=== PATIENT | male | born 1980 | race Hispanic/Latino ===

== ENCOUNTER 2021-02-22 02:37 | Inpatient (IN) | payer MEDICARE ==
[~2021-02-22] VITALS: Ht 167.6 cm; Wt 78.9 kg
[2021-02-22 04:00] VITALS: BP 159/91
[2021-02-22] MEDS ORDERED: NITROGLYCERIN 0.4 MG SL TAB SL PRN (04:00)
[2021-02-22] MEDS ORDERED: 0.9%NACL 1000ML 1,000 ML IV SCH (04:00)
[2021-02-22] MEDS ORDERED: ONDANSETRON 4MG INJ IV PRN (04:00)
[2021-02-22] MEDS ORDERED: 0.9%NACL 1000ML 1,000 ML IV ONE (04:41)
[2021-02-22 05:12] LABS: MEAN CORPUSCULAR HEMOGLOBIN 28.5 pg (27.0-33.0); MEAN CORPUSCULAR HGB CONC 33.3 g/dL (32.0-36.0); MEAN CORPUSCULAR VOLUME 85.5 fL (79-99); PLATELET COUNT (AUTO) 221 K/uL (130-400); RED BLOOD CELL COUNT(AUTO) 4.56 MIL/uL (4.50-6.20); RED CELL DISTRIBUTION WIDTH 12.9 % (11.0-15.5); WHITE BLOOD COUNT (AUTO) 6.9 K/uL (4.8-10.8)
[2021-02-22] MEDS ORDERED: GLUCAGON 1MG KIT 1 MG ML IM PRN (05:30)
[2021-02-22] MEDS ORDERED: DEXTROSE 50%-WATER 50 ML DISP.SYRIN IV PRN (05:30)
[2021-02-22 05:36] LABS: INR 1.17 (0.85-1.15); PROTHROMBIN TIME 12.6 SEC (9.6-11.6)
[2021-02-22 05:38] LABS: PARTIAL THROMBOPLASTIN TIME 32.2 SEC (26.3-35.5)
[2021-02-22 05:52] LABS: HEMOGLOBIN A1C 5.6 % (4.0-6.0)
[2021-02-22 05:55] LABS: BILIRUBIN,TOTAL 0.5 mg/dL (0.2-1.0); CREATININE 0.9 mg/dL (0.5-1.5); MAGNESIUM 2.1 mg/dL (1.80-2.40); POTASSIUM 3.8 mmol/L (3.5-5.1)
[2021-02-22 05:56] LABS: ALBUMIN 3.6 g/dL (3.5-5.0); TOTAL PROTEIN, SERUM 6.4 g/dL (6.0-8.3)
[2021-02-22] MEDS ORDERED: ZOSYN 3.375GM+NS 50ML 50 ML ONE (05:58)
[2021-02-22] MEDS ORDERED: KETOROLAC 15MG/ML VIAL (15MG/ML) ONE (05:58)
[2021-02-22 06:06] LABS: BASOPHILS % (MANUAL) 1 % (0-2); EOSINOPHILS % (MANUAL) 3 % (1-6); LYMPHOCYTES % (MANUAL) 64 % (22-44); MAN.DIFF COMMENT-IMPRESSION MANUAL DIFFERENTIAL; MONOCYTES % (MANUAL) 4 % (2-9); SEGMENTED NEUTROPHILS % 28 % (40-70)
[2021-02-22 06:07] LABS: PLATELET MORPHOLOGY COMMENT ADEQUATE
[2021-02-22] MEDS: INSULIN HUMULIN R 100 UNIT/ML 3ML SQ SCH ×4 (07:30→20:50)
[2021-02-22 08:01] VITALS: BP 157/98
[2021-02-22] MEDS: FAMOTIDINE 20MG VIAL IV SCH ×2 (09:39→20:49)
[2021-02-22] MEDS: KETOROLAC 15MG/ML VIAL (15MG/ML) IM PRN ×2 (09:50→18:31)
[2021-02-22] MEDS: DEXTROSE 5%-LACTATED RINGERS 1,000 ML IV SCH ×2 (11:29→23:28)
[2021-02-22 11:39] VITALS: BP 175/87
[2021-02-22] MEDS ORDERED: ZOSYN 3.375GM+NS 50ML 3.38 GM in 0.9%NACL 50ML 50 ML IV SCH (13:00)
[2021-02-22] MEDS: ZOSYN 3.375GM +NS 50ML IV SCH ×2 (13:28→20:49)
[2021-02-22] MEDS ORDERED: AMLODIPINE 5 MG TAB PO ONE (14:00)
[2021-02-22 15:49] VITALS: BP 136/83
[2021-02-22 19:50] VITALS: BP 157/77
[2021-02-22 23:43] VITALS: BP 130/73
[2021-02-23 03:48] VITALS: BP 128/77
[2021-02-23] MEDS: ZOSYN 3.375GM +NS 50ML IV SCH (04:21)
[2021-02-23] MEDS: INSULIN HUMULIN R 100 UNIT/ML 3ML SQ SCH ×2 (05:49→11:30)
[2021-02-23 06:19] LABS: BASOPHILS % (AUTO) 1.3 % (0.0-5.0); EOSINOPHILS % (AUTO) 4.9 % (0.0-8.0); HEMATOCRIT 38.7 % (42-54); LYMPHOCYTES % (AUTO) 42.8 % (21.0-51.0); MEAN CORPUSCULAR HEMOGLOBIN 28.2 pg (27.0-33.0); MEAN CORPUSCULAR HGB CONC 32.8 g/dL (32.0-36.0); MONOCYTES % (AUTO) 4.6 % (3.0-13.0); NEUTROPHILS % (AUTO) 46.2 % (40.0-77.0); PLATELET COUNT (AUTO) 210 K/uL (130-400); WHITE BLOOD COUNT (AUTO) 5.5 K/uL (4.8-10.8)
[2021-02-23 06:47] LABS: CREATININE 0.9 mg/dL (0.5-1.5); POTASSIUM 3.7 mmol/L (3.5-5.1)
[2021-02-23 07:55] VITALS: BP 159/81
[2021-02-23] MEDS ORDERED: AMLODIPINE 5 MG TAB PO SCH (09:00)
[2021-02-23] MEDS: FAMOTIDINE 20MG VIAL IV SCH (09:45)
[2021-02-23] MEDS: DEXTROSE 5%-LACTATED RINGERS 1,000 ML IV SCH (11:35)
[2021-02-23 12:00] VITALS: BP 146/84
== END 2021-02-23 14:41 | disposition home or self-care (01) | DRG 390 ==
LOC: 3CH 03:42 → OBSVTOIN 03:42
PROVIDERS: ADMIT Internal Medicine; ATTEND Internal Medicine
DX: K56.600 Partial intestinal obstruction, unspecified as to cause (principal); K52.9 Noninfective gastroenteritis and colitis, unspecified; K57.90 Diverticulosis of intestine, part unspecified, without perforation or abscess without bleeding; Z20.822 Contact with and (suspected) exposure to COVID-19; E11.9 Type 2 diabetes mellitus without complications; K82.8 Other specified diseases of gallbladder; K56.7 Ileus, unspecified; I10 Essential (primary) hypertension; K57.30 Diverticulosis of large intestine without perforation or abscess without bleeding; R00.1 Bradycardia, unspecified; K76.0 Fatty (change of) liver, not elsewhere classified; Z98.84 Bariatric surgery status; Z83.3 Family history of diabetes mellitus; Z82.49 Family history of ischemic heart disease and other diseases of the circulatory system; I99.8 Other disorder of circulatory system
CPT/HCPCS: 36415; 74018; 76705; 80048; 80053; 82948; 83036; 83605; 83735; 84145; 85025; 85610; 85730; 87040; 87635; 93005; G0378; J1885; J2543; J3490; J7030